=== PATIENT | female | born 1940 | race Caucasian/White ===

== ENCOUNTER 2021-07-22 14:49 | Observation (INO) | payer MEDICARE, SELFPAY ==
[2021-07-22] VITALS (29 sets, daily range): BP systolic 136–166; BP diastolic 56–139; PULSE 47–100; RESP 11–23; TEMP 36.4–37.1; O2SAT 93–100; BMI 26.0
--- NOTE | ~2021-07-22 | XR_ITS ---
EXAMINATION: XR chest 1V portable EXAM DATE: 07/22/2021 15:54 INDICATION: Dizziness. TECHNIQUE: Portable AP frontal chest x-ray was obtained. Comparison is made to prior examination from 08/17/2015. FINDINGS: The lungs are clear. There are no pleural effusions. Borderline cardiomegaly. There is n o pneumothorax suspected. The bones and soft tissues are unremarkable. Bilateral rotator cuff repa ir anchors. IMPRESSION: No acute cardiopulmonary findings. Reviewed, dictated and finalized at location B.
--- NOTE | ~2021-07-22 | US_ITS ---
EXAMINATION: US carotid duplex BI DATE: 07/23/2021 08:50 INDICATION: Disequilibrium TECHNIQUE: Grayscale, color Doppler, and pulsed Doppler images of the cervical carotid arteries were obtained. The degree of vessel stenosis is placed in one of the following categories: normal, <50%, 5 0-69%, >=70% but less than near-occlusion, near-occlusion, or total occlusion. Note that percent sten osis relative to normal distal artery lumen diameter is indirectly measured from velocity measurement s as described by Seven, et al. Radiology 2003; 229:340-346. COMPARISON: None. FINDINGS: RIGHT: The right common carotid artery (CCA) peak systolic velocity (PSV) is 66 cm/s. The right internal car otid artery (ICA) PSV is 99 cm/s. The right ICA end-diastolic velocity (EDV) is 26 cm/s. The right IC A/CCA PSV ratio is 1.5. Grayscale and color Doppler images yield an estimate of <50% diameter reducti on from plaque in the ICA. The external carotid artery (ECA) PSV is 87 cm/s. There is antegrade flow in the right vertebral artery. LEFT: The left CCA PSV is 69 cm/s. The left ICA PSV is 74 cm/s. The left ICA EDV is 15 cm/s. The left ICA/C CA PSV ratio is 1.1. Grayscale and color Doppler images yield an estimate of <50% diameter reduction from plaque in the ICA. The ECA PSV is 123 cm/s. There is antegrade flow in the left vertebral artery . IMPRESSION: 1. <50% stenosis in the right internal carotid artery. 2. <50% stenosis in the left internal carotid artery. Reviewed, dictated and finalized at location A.
--- NOTE | ~2021-07-22 | MR_ITS ---
EXAMINATION: MR brain/brain stem wo/w con DATE: 07/23/2021 08:25 INDICATION: Stroke TECHNIQUE: Magnetic resonance imaging (MRI) of the brain and brainstem was performed without and with 14 mL Multihance intravenous contrast. Sequences included sagittal and axial T1-weighted SE, axial d iffusion-weighted FS SE, axial T2*-weighted GRE, axial T2-weighted FLAIR, and axial T2-weighted FSE. Postcontrast axial and coronal T1-weighted SE was obtained. Apparent diffusion coefficient (ADC) maps were created. COMPARISON: 02/26/2012 FINDINGS: There are no areas of restricted diffusion to suggest acute infarction. No intracranial hemorrhage or abnormal intracranial mass lesion. There are scattered areas of nonspecific increased T2-weighted si gnal intensity in the cerebral white matter, predominantly involving the deep and periventricular whi te matter which has progressed since the prior study but which remains within normal limits for age. There are no intraparenchymal signal abnormalities seen on the other pulse sequences. The ventricles are symmetric and normal in size. There are no abnormal extra-axial fluid collections. Flow voids are seen in the cerebral arteries on the T2-weighted sequences consistent with their expected patency. M ucosal thickening throughout the visualized paranasal sinuses with small amount of posterior layering fluid in the left maxillary sinus. Bilateral maxillary sinuses are small with thickened sclerotic wa lls consistent with chronic sinusitis. There also changes of bilateral antral window procedures. Barrios ges of bilateral intraocular lens replacement. There are no areas of abnormal enhancement on the post contrast images. IMPRESSION: 1. No acute intracranial process or abnormally enhancing brain lesions. 2. Interval progression of likely age-related scattered periventricular predominant white matter T2 h yperintensity consistent with chronic small vessel ischemic disease. 3. Chronic sinus disease. Reviewed, dictated and finalized at location A. IMPRESSION: 1. No acute intracranial process or abnormally enhancing brain lesions. 2. Interval progression of likely age-related scattered periventricular predomi nant white matter T2 hyperintensity consistent with chronic small vessel ischem ic disease. 3. Chronic sinus disease.
--- NOTE | ~2021-07-22 | CT_ITS ---
EXAMINATION: CT brain wo con DATE: 07/22/2021 15:46 INDICATION: Dizziness. TECHNIQUE: Computed tomography (CT) of the head was performed without intravenous contrast. The mA wa s adjusted according to patient size. Iterative reconstruction technique was employed. The dose-lengt h product was 529.67 mGy-cm. COMPARISON: Brain MRI 02/26/2012 FINDINGS: There are scattered areas of low attenuation in the cerebral white matter. There is no intr acranial hemorrhage, acute infarction, or abnormal intracranial mass lesion. The ventricles are citlalli l in size. There is mucosal thickening in the paranasal sinuses. There are trace bilateral mastoid ef fusions. IMPRESSION: 1. Worsened moderate nonspecific cerebral white matter disease, which likely represents chronic small vessel ischemic disease. Reviewed, dictated and finalized at location A. IMPRESSION: 1. Worsened moderate nonspecific cerebral white matter disease, which likely re presents chronic small vessel ischemic disease.
--- NOTE | 2021-07-22 14:59 | ECG_ITS ---
Measurements Intervals [place] Rate: 48 P: 50 HI: 161 QRS: 1 QRSD: 118 T: 107 QT: 478 QTc: 431 Interpretive Statements SINUS BRADYCARDIA LEFT VENTRICULAR HYPERTROPHY WITH ST-T CHANGE CONSIDER INFERIOR INFARCT, AGE INDETERMINATE BORDERLINE ST-T WAVE ABNORMALITY- ANTEROLATERAL LEADS BASELINE WANDER- AVR, AVL, AVF ABNORMAL ECG Electronically Signed On 07-22-2021 15:09:09 CDT by Timur Donis D.O.
[2021-07-22 15:17] LABS: Basophils Percent Auto 0.6 % (0.2-1.2); Eosinophils Absolute Auto 0.1 K/mm3 (0-0.3); Eosinophils Percent Auto 1.6 % (0-4.4); Hematocrit 38.5 % (37.0-47.0); Hemoglobin 12.8 g/dL (12.0-15.0); Immature Granulocyte Absolute 0.02 K/mm3 (0.00-0.031); Immature Granulocyte Percent A 0.4 % (0-0.5); Lymphocytes Absolute Auto 1.61 K/mm3 (0.9-3.2); Lymphocytes Percent Auto 31.5 % (18.3-44.2); Mean Corpuscular HGB Conc 33.2 g/dl (32-36); Mean Corpuscular Hemoglobin 32.7 pg (26-34); Mean Corpuscular Volume 98.2 fl (80-100); Mean Platelet Volume 10.7 fl (7.4-10.4); Monocytes Absolute Auto 0.4 K/mm3 (0.1-0.6); Monocytes Percent Auto 8.4 % (2.6-8.5); Neutrophils Absolute Auto 2.9 K/mm3 (1.3-6.7); Neutrophils Percent Auto 57.5 % (45.5-73.1); Platelet Count Result 187 k/mm3 (150-375); Red Blood Count 3.92 M/mm3 (4.2-5.4); Red Cell Distribution Width 12.8 % (11.5-14.5); White Blood Count 5.1 K/mm3 (4.5-10.0)
[2021-07-22 15:29] LABS: Alanine Aminotransferase 16 U/L (4-35); Albumin Level 4.1 g/dL (3.5-5.1); Alkaline Phosphatase 76 U/L (38-126); Anion Gap 9 mmol/L (8-16); Aspartate Amino Transferase 24 U/L (14-36); Bilirubin,Total 0.7 mg/dL (0.2-1.3); Blood Urea Nitrogen 10 mg/dL (7-17); Calcium 8.7 mg/dL (8.4-10.2); Carbon Dioxide 23 mmol/L (22-30); Chloride 103 mmol/L (98-107); Estimated Glomerular Filt Rate 43; Glucose 113 mg/dL (65-110); Potassium 3.9 mmol/L (3.4-5.0); Sodium 135 mmol/L (137-145)
--- NOTE | 2021-07-22 15:30 | PM.IMHP ---
H&P: HPI History of Present Illness Date/Time: 07/22/21 15:30 Chief Complaint: Dizziness. Narrative: This is a very pleasant 81-year-old female smoker with coronary artery disease, diet-controlled diabetes, hypertension, and hyperlipidemia presented to the emergency department earlier today via private vehicle from home for evaluation of dizziness. For at least the last 6 months if not longer she has had intermittent problems with her balance and in fact she had a fall in January 2021 due to the same. Earlier this week she and her daughter were on vacation in [place] and while walking down the sidewalk on Sunday she seemed to be much more off balance than usual and daughter reports that she seemed to be staggering to the point where the patient had to hold onto a railing to keep herself upright. Daughter noticed that the patient seemed to be a bit disoriented and somewhat irritable at that time as well and they ended up having to find a wheelchair to take her back to their room. Sunday they flew back home and she seemed to be doing a bit better that afternoon when she returned home. Unfortunately she continues to have feelings of being off balance. Daughter think she also seems to be a bit confused, not able to recall some events that happened while they were in [place]. With further questioning patient mentions that she had mild, intermittent diplopia earlier this week but has no symptoms of such at this time. She denies headache, neck ache, focal weakness, paresthesias chest pain, palpitations, dysarthria, dysphagia, and facial droop. No lightheadedness, syncope, or near syncope. Of note the patient does have ongoing issues with her sinuses and otitis media for which she has seen by Dr. Gunter though it has not been causing her any issues within the last couple of weeks. Review of Systems Review of Systems: Twelve systems were reviewed with pertinent positives and negatives as per HPI. She denies fever, chills, and sweats. No sinus congestion, rhinorrhea, otalgia, or odynophagia. No known exposure to those positive for COVID 19. She denies shortness of breath and cough. No nausea, vomiting, diarrhea, or dysuria. Except as documented, all other systems were reviewed and are negative. [facility] Past Medical History Medical History (Updated 07/22/21 @ 22:16 by Ashley Da Silva PA-C) Colon polyps Coronary artery disease Depression with anxiety Diet-controlled diabetes mellitus Diverticulosis Fibromyalgia Gastroesophageal reflux disease History of kidney stones Hyperlipidemia Hypertension Overactive bladder Tobacco dependence Surgical History Surgical History (Updated 07/22/21 @ 22:10 by Ashley Da Silva PA-C) History of bilateral cataract extraction History of coronary artery stent placement (2012) History of repair of rotator cuff History of sinus surgery History of unilateral oophorectomy Family History Family History Sibling Carcinoma of colon Mother Cardiomegaly Social History Social History (Updated 07/22/21 @ 22:12 by Ashley Da Silva PA-C) Social History: Surrogate decision maker: Pastora Bishop, daughter. Code status: Full code. Smoking packs per day: 1.5 Smoking cigarettes per day: 30.0 Years smoked: 55 Smoking pack-years: 82.50 Smoking status: Current every day smoker Tobacco type: cigarettes Alcohol intake: never Substance use: never Substance use type: does not use Additional living arrangements comments: Patient lives in her own home in [place] with her dogs. Additional occupation/education comments: Retired [employer]. Meds Home Medications and Allergies Home Medications Medication Instructions Recorded Confirmed Type albuterol sulfate 90 mcg/actuation 1 inh INHALATION Q4H PRN 03/23/21 07/22/21 History aerosol inhaler aspirin 81 mg tablet,delayed 81 mg PO DAILY 03/23/21 07/22/21 Histo
--- NOTE | 2021-07-22 15:30 | ED.DIZZY ---
HPI - Dizziness General Chief Complaint: Dizziness Stated Complaint: Dizziness/Weakness Time Seen by Provider: 07/22/21 15:00 Source: RN notes reviewed History of Present Illness HPI Narrative: Patient presents emergency department from home for dizziness. Patient states the dizziness began 4 days ago she states that she was in [place] and they were walking to go eat when she began to feel dizzy and lightheaded and felt generally weak states she had to sit down at that time states that since that time she has been having dizziness that seems to be worse he gets up that she describes as a feeling of off-balance but it has improved over that time she denies having any unilateral numbness or tingling of the extremities chest pain shortness of breath abdominal pain nausea vomiting or any other symptoms Related Data Home Medications Medication Instructions Recorded Confirmed albuterol sulfate 90 mcg/actuation 1 inh INHALATION Q4H 03/23/21 aerosol inhaler aspirin 81 mg tablet,delayed 81 mg PO DAILY 03/23/21 release biotin 10,000 mcg capsule mcg PO DAILY cap 03/23/21 clopidogrel 75 mg tablet 75 mg PO DAILY 03/23/21 dicyclomine 10 mg capsule 10 mg PO BID 03/23/21 escitalopram oxalate 10 mg tablet 10 mg PO DAILY 03/23/21 fluticasone propionate 50 1 spray INTRANASAL DAILY 03/23/21 mcg/actuation nasal spray,suspension lisinopril 5 mg tablet 5 mg PO DAILY 03/23/21 metoprolol tartrate 25 mg tablet 25 mg PO DAILY 03/23/21 mirabegron 50 mg tablet,extended 50 mg PO DAILY 03/23/21 release 24 hr omega 0-ugb-zdt-fish oil 1,200 mg cap PO DAILY cap 03/23/21 (144 mg-216 mg) capsule pantoprazole 40 mg tablet,delayed 40 mg PO QAM 03/23/21 release rosuvastatin 10 mg tablet 10 mg PO DAILY 03/23/21 Allergies Allergy/AdvReac Type Severity Reaction Status Date / Time codeine Allergy Unknown Unknown Verified 03/23/21 13:57 Review of Systems Review of Systems: Gen.: Denies fevers or chills Eyes: Denies eye pain or visual change ENT: Denies congestion Respiratory: Denies shortness of breath or cough CV: Denies chest pain or palpitations GI: Denies abdominal pain nausea, emesis or diarrhea Musculoskeletal: Denies back pain or muscle pain Neuro: See Skin: Denies rash Except as documented, all other systems reviewed and negative [facility] Past Medical History Medical History (Updated 07/22/21 @ 18:31 by Ruben Harper DO) Hypertension Family History Family History (Updated 01/07/19 @ 11:20 by DOCTOR UNKNOWN) Sibling Carcinoma of colon Social History Social History Smoking packs per day: 1.5 Smoking cigarettes per day: 30.0 Smoking status: Current every day smoker Alcohol intake: never Substance use: never Exam Narrative: APPEARANCE: No acute distress, nontoxic, resting in bed HEENT: Normocephalic, atraumatic, OMM, TMs clear bilaterally EYES: PERRL, EOMI NECK: Supple, nontender, full range of motion without pain, no meningismus RESPIRATORY: No respiratory distress, clear to auscultation bilaterally with no rhonchi wheezing or rales CARDIOVASCULAR: RRR s murmur ABDOMINAL: Soft, nontender, nondistended MUSCULOSKELETAL: Moves all extremities. No clubbing, cyanosis or edema. NEURO: A and O ?3, following commands, speech normal, cranial nerves II through XII grossly intact,muscle strength 5 out of 5 bilateral upper and lower extremities no pronator drift SKIN:: Warm, dry. Normal Color PSYCHIATRIC: Normal affect/mood Course Course Emergency Course: Patient got up to ambulate to the bathroom she is able to ambulate but still notes unsteady gait patient states she took her Plavix and aspirin this morning Discussed with JOSELO Ramirez for Dr. Case presentation work-up agrees with admission at this time Discussed with patient and family results of workup and diagnosis. Discussed need for admission. Patient and family understand and agree to cu
[2021-07-22 15:48] LABS: Partial Thromboplastin Time 28.8 SECONDS (22.3-36.8)
[2021-07-22 16:01] LABS: Troponin I < 0.012 ng/mL (0.000-0.034)
[2021-07-22] MEDS: SODIUM CHLORIDE 0.9% IV 1,000 ML 999 ML IV CONT (16:20)
[2021-07-22] MEDS: MECLIZINE HCL 12.5 MG TABLET PO (16:20)
[2021-07-22 16:35] LABS: Add Urine Microscopic? YES; Appearance Urine Clear (Clear); Bilirubin Urine Negative (Negative); Blood Urine Negative (Negative); Color Urine Yellow (Yellow); Glucose Urine UA Negative (Negative); Ketones Urine Negative (Negative); Leukocyte Esterase Ur Trace LEU/UL (Negative); Nitrate Urine Negative (Negative); Protein Urine Negative (Negative); RBC Urine 0-2 /hpf (0-2); Specific Grav Ur 1.009 (1.001-1.035); Squamous Epithelial Cell Urine Rare /hpf (Few); Transitional Epi Cells Urine Rare /hpf (None Seen); Urobilinogen Urine Negative mg/dL (<2.0)
--- NOTE | 2021-07-22 18:48 | ADMGEN ---
This patient, Kaia Skaggs, was admitted to Medical Room 247-. Patient/family oriented to hospital policies and general routines including ID bracelet, bed and alarms, visiting hours, pain management, procedures, bathroom and other care routines, personal items, smoking policy, room service/diet, and visiting hours. Information on how to activate the Rapid Response Team has been discussed. Patient/Family are encouraged to report perceived risks to care and to ask questions if they do not understand what they are told or what they should do.
[2021-07-22 21:21] LABS: Troponin I < 0.012 ng/mL (0.000-0.034)
[2021-07-22] MEDS: SODIUM CHLORIDE 0.9% IV 1,000 ML 100 ML IV CONT (23:03)
[2021-07-23] VITALS (7 sets, daily range): BP systolic 146–155; BP diastolic 63–68; PULSE 56–62; RESP 18; TEMP 36.4; O2SAT 96
[2021-07-23 00:37] LABS: Troponin I < 0.012 ng/mL (0.000-0.034)
[2021-07-23 06:50] LABS: Basophils Percent Auto 0.7 % (0.2-1.2); Eosinophils Absolute Auto 0.1 K/mm3 (0-0.3); Eosinophils Percent Auto 1.9 % (0-4.4); Hematocrit 36.9 % (37.0-47.0); Hemoglobin 12.1 g/dL (12.0-15.0); Immature Granulocyte Absolute 0.01 K/mm3 (0.00-0.031); Immature Granulocyte Percent A 0.2 % (0-0.5); Lymphocytes Percent Auto 24.4 % (18.3-44.2); Mean Corpuscular HGB Conc 32.8 g/dl (32-36); Mean Corpuscular Hemoglobin 31.7 pg (26-34); Mean Corpuscular Volume 96.6 fl (80-100); Mean Platelet Volume 10.8 fl (7.4-10.4); Monocytes Absolute Auto 0.5 K/mm3 (0.1-0.6); Monocytes Percent Auto 8.2 % (2.6-8.5); Neutrophils Absolute Auto 3.7 K/mm3 (1.3-6.7); Neutrophils Percent Auto 64.6 % (45.5-73.1); Platelet Count Result 192 k/mm3 (150-375); Red Blood Count 3.82 M/mm3 (4.2-5.4); Red Cell Distribution Width 12.7 % (11.5-14.5); White Blood Count 5.7 K/mm3 (4.5-10.0)
[2021-07-23 07:02] LABS: Magnesium 1.9 mg/dL (1.6-2.3)
[2021-07-23 07:12] LABS: Alanine Aminotransferase 14 U/L (4-35); Albumin Level 3.6 g/dL (3.5-5.1); Alkaline Phosphatase 77 U/L (38-126); Anion Gap 6 mmol/L (8-16); Aspartate Amino Transferase 23 U/L (14-36); Bilirubin,Total 0.4 mg/dL (0.2-1.3); Blood Urea Nitrogen 8 mg/dL (7-17); Calcium 8.4 mg/dL (8.4-10.2); Carbon Dioxide 24 mmol/L (22-30); Chloride 108 mmol/L (98-107); Estimated CRCL calculation 39 ml/min; Estimated Glomerular Filt Rate 60; Glucose 113 mg/dL (65-110); Potassium 3.6 mmol/L (3.4-5.0); Sodium 138 mmol/L (137-145)
[2021-07-23] MEDS: CLOPIDOGREL BISULFATE 75 MG TABLET PO (09:00)
[2021-07-23] MEDS: ASPIRIN 81 MG ENTERIC TABLET PO (09:00)
[2021-07-23] MEDS: ROSUVASTATIN 10 MG TABLET PO (09:00)
[2021-07-23] MEDS: PANTOPRAZOLE 40 MG TABLET PO (09:00)
[2021-07-23] MEDS: ESCITALOPRAM OXALATE 10 MG TABLET PO (09:00)
[2021-07-23] MEDS: OMEGA 3 POLYUNSAT FATTY ACIDS 1 GM CAP PO (09:01)
[2021-07-23] MEDS: lisinopriL 5 MG TABLET PO (09:01)
[2021-07-23] MEDS: DICYCLOMINE HCL 10 MG CAPSULE PO (09:01)
[2021-07-23] MEDS: MIRABEGRON 50 MG ER TABLET PO (09:01)
[2021-07-23] MEDS: METOPROLOL TARTRATE 25 MG TABLET PO (09:02)
[2021-07-23] MEDS: FLUTICASONE PROPIONATE 0.05% NA SPR 16 GM BTL (*BKC) 1 SPRAY NASAL (09:03)
--- NOTE | 2021-07-23 12:43 | PM.DS ---
DS: Admitting Diagnosis Admitting Diagnosis Unsteadiness DS: Discharge Diagnosis Discharge Diagnosis (1) Gait instability: Code(s): R26.81 - Unsteadiness on feet Status: Acute (2) Coronary artery disease: Code(s): I25.10 - Atherosclerotic heart disease of [place] coronary artery without angina pectoris Status: Chronic (3) Hyperlipidemia: Code(s): E78.5 - Hyperlipidemia, unspecified Status: Acute (4) Hypertension: Code(s): I10 - Essential (primary) hypertension Status: Acute DS: Summary Hospital Course Hospital Course: This is an 81-year-old woman with past medical history of hypertension, hyperlipidemia, fibromyalgia, GERD, nicotine dependence, and diet-controlled diabetes mellitus, presents to the emergency department on 07/22 for evaluation of unsteady gait. This has been a chronic issue for her but with recent worsening. It was brought on mostly when she had a trip to [place] with her daughter last week. She was noted to to have intermittent difficulty with keeping her balance with walking. This was also associated with some intermittent confusion and forgetfulness. When she returned home her daughter reports that she felt significantly better, however given concern about progression, she was brought to the emergency department. On presentation and evaluation for possible cardiac etiology showed negative serial troponins. She denied any chest pain. She denied any focal deficit neurologically. She had CT scan of the head that showed moderate nonspecific cerebral white matter disease that had worsened which was reported as representing chronic small vessel ischemic disease. She had a brain MRI that confirmed these findings and did not note any significant acute findings or what would suggest recent stroke or otherwise. She had ultrasound of her carotid vessels that showed no significant stenosis. An echocardiogram was done and is pending at the time of discharge. She did not have urinary symptoms, did have trace leukocyte esterase on her urinalysis, urine culture was pending at the time of discharge. She did have some low HR down to 40s and her metoprolol dose was decreased to 12.5 mg daily. She was adamant about discharge as she felt back to her baseline, and did not want to wait for the results of these tests. She was visited by Physical therapy who noted she currently ambulates without a device and has mild path deviation but no loss of balance, reported to be at the prior level of ability, no further inpatient physical therapy needs but recommended outpatient physical therapy for high-level balance after discharge. A complete blood count was done during her hospitalization and was negative, so were her electrolytes, including thyroid check and B12. Given negative findings, there was a question about possible early dementia developing leading to the current presentation and the fact that her recent trip to [place] with unfamiliar surroundings were able to magnify her symptoms. The plan and findings above were discussed in detail with her daughter Pastora, who has been looking after. She will be cared for after discharge by her daughter and has a follow-up appointment on 07/28 with her primary provider. Time Spent with Patient Time attestation: Total time spent providing and/or coordinating discharge services: 33 min Exam Narrative: Gen: Alert, NAD Abd: Soft, NT, ND Heart: RRR Lungs: CTAB Ext: No lower extremity edema DS: Data Data Completed and Pending Labs on day of discharge: Labs from last 24 hours 07/23/21 07/23/21 07/23/21 06:01 06:01 06:01 WBC RBC Hgb Hct MCV MCH MCHC RDW Plt Count MPV Immature Gran % (Auto) Neut % (Auto) Lymph % (Auto) [place] % (Auto) Eos % (Auto) Baso % (Auto) Lymph # (Auto) [place] # (Auto) Eos # (Auto) Baso # (Auto) Abs Immat Gran (auto) Absolute Neuts (auto) Ab
--- NOTE | 2021-07-23 22:20 | ECHO_ITS ---
Patient Info Name: Kaia Skaggs Age: 81 years : 1940 Gender: Female Ht: 64 in Wt: 154 lbs BSA: 1.79 m2 HR: 55 bpm BP: 146 / 65 mmHg Technical Quality: Good Exam Date: 07/23/2021 9:18 AM Exam Location: [facility] Patient Status: Outpatient Admit Date: 07/22/2021 Staff Ordering Physician: Ashley Da Silva PA-C Floral Specialist: Mary Mar RDCS Attending Provider: Tatiana Hernandez MD Referring Physician: Rekha LUNDY; Exam Type: CA echo doppler color flow Study Info Complete two-dimensional, color flow and Doppler transthoracic echocardiogram is performed. Summary 1. Complete two-dimensional, color flow and Doppler transthoracic echocardiogram is performed. 2. Left ventricular chamber dimension is moderately enlarged. 3. Left ventricular systolic function is normal, estimated at 55-60%. 4. There is mildly increased left ventricular wall thickness. 5. The left ventricular diastolic function is grade I diastolic dysfunction. 6. E/e' 12 is mildly elevated. 7. Left atrial chamber dimension is moderately enlarged. 8. Right atrial chamber dimension is mildly enlarged. 9. There is moderate aortic valve sclerosis. 10. There is mild aortic valve stenosis with a peak velocity of 196 cm/s, mean gradient of 6 mmHg, and aortic valve area of 1.5 cm2. 11. There is moderate aortic valve regurgitation. 12. The mitral valve has mildly calcified annulus. 13. There is mild to moderate mitral valve regurgitation. 14. There is trace tricuspid valve regurgitation. 15. No pulmonary hypertension, estimated pulmonary arterial systolic pressure is 31 mmHg. 16. There is trace pulmonic regurgitation. Left Ventricle E/e' 12 is mildly elevated. Left ventricular chamber dimension is moderately enlarged. Left ventricular systolic function is normal, estimated at 55-60%. There is mildly increased left ventricular wall thickness. The left ventricular diastolic function is grade I diastolic dysfunction. Right Ventricle Right ventricular systolic function is normal and with normal TAPSE 2.5 cm. Right ventricular chamber dimension is normal. Left Atria Left atrial chamber dimension is moderately enlarged. Right Atria Right atrial chamber dimension is mildly enlarged. Aortic Valve The aortic valve is trileaflet. There is moderate aortic valve sclerosis. There is mild aortic valve stenosis with a peak velocity of 196 cm/s, mean gradient of 6 mmHg, and aortic valve area of 1.5 cm2. There is moderate aortic valve regurgitation. Pulmonic Valve There is trace pulmonic regurgitation. Mitral Valve The mitral valve has mildly calcified annulus. There is no mitral valve stenosis. There is mild to moderate mitral valve regurgitation. Tricuspid Valve There is trace tricuspid valve regurgitation. No pulmonary hypertension, estimated pulmonary arterial systolic pressure is 31 mmHg. Pericardium/Pleural There is no pericardial effusion. Inferior Vena Cava Normal inferior vena cava with >50% collapse upon inspiration consistent with normal right atrial pressure, 5 mmHg. Aorta The aortic root size at the sinus of Valsalva is normal. Left Ventricular Outflow Tract Name Value Normal LVOT 2D LVOT Diameter
--- NOTE | 2021-07-26 15:25 | PM.EVENT ---
Event Note Event Note Event Note: I called the patient on 07/26 to let her know urine culture results which grew Klebsiella. She reports no urinary symptoms such as dysuria, hematuria, abdominal pain, pressure or otherwise. She is feeling quite well with no dizziness or lightheadedness. I asked her to call her primary if he developed any urinary symptoms. No indication for treatment.
== END 2021-07-23 14:38 | disposition home or self-care (01) ==
LOC: ANHED 16:03 → ANH2MED 18:15
PROVIDERS: Physician Assistant; Admitting Provider Internal Medicine; Emergency Provider Emergency Medicine; PCP Nurse Practitioner Adult Health; Visit Provider Internal Medicine Nephrology
DX: R42 Dizziness and giddiness (principal); R26.81 Unsteadiness on feet; I25.10 Atherosclerotic heart disease of native coronary artery without angina pectoris; E11.9 Type 2 diabetes mellitus without complications; I10 Essential (primary) hypertension; E78.5 Hyperlipidemia, unspecified; F17.210 Nicotine dependence, cigarettes, uncomplicated; E86.0 Dehydration; R00.1 Bradycardia, unspecified; R53.1 Weakness
CPT/HCPCS: 36415; 70450; 70553; 71045; 80053; 81001; 82607; 83735; 84443; 84484; 85025; 85610; 85730; 87077; 87086; 87186; 93005; 93306; 93880; 96361; 96365; 97161; 99285; A9270; A9577; G0378; J0696; J7030